=== PATIENT | female | born 1990 | race Caucasian/White ===

== ENCOUNTER 2017-02-26 07:42 | Emergency (ER) | payer SELFPAY ==
[~2017-02-26] VITALS: Ht 162.6 cm; Wt 48.0 kg
[2017-02-26 07:48] VITALS: BP 117/74; PULSE 100; RESP 16; TEMP 98.4; O2SAT 100
[2017-02-26] MEDS ORDERED: ZOFR4TAB PO (08:24)
[2017-02-26] MEDS ORDERED: ONDANSETRON ODT 4 MG TAB PO ONE (08:30)
--- NOTE | 2017-02-26 08:37 | PD ---
HPI Chief Complaint: GI Complaint Time Seen by Provider: 07:52 Travel History International Travel<30 days: No Contact w/Intl Traveler<30days: No Traveled to known affect area: No History of Present Illness HPI The patient was seen and examined in the presence of the nurse. This patient complains of nausea and vomiting and diarrhea. Duration 2 days. Severity is mild to moderate. No alleviating factors. She is not having abdominal or pelvic pain in a sustained fashion. There have been a few intermittent abdominal cramps that have resolved. PFSH Past Medical History Hx Anticoagulant Therapy: No Cardiovascular Problems: No Chemotherapy: No Cerebrovascular Accident: No Diabetes: No Diminished Hearing: No Respiratory: No ?: Unknown : 3 Para: 3 Past Surgical History Hysterectomy: No Social History Alcohol Use: No Tobacco Use: Yes (1PPD) Substance Use: No Allergies-Medications (Allergen,Severity, Reaction): Coded Allergies: No Known Allergies (Unverified , 02/26/17) Reported Meds & Prescriptions Reported Meds & Active Scripts Active Zofran (Ondansetron HCl) 4 Mg Tab 4 Mg PO Q6HR PRN Review of Systems General / Constitutional: No: Fever HENT: No: Headaches Cardiovascular: No: Chest Pain or Discomfort Respiratory: No: Cough Physical Exam Narrative GASTROINTESTINAL: Abdomen soft, non-tender, nondistended. Positive bowel sounds. No hepato-splenomegaly, or palpable masses. No guarding. SKIN: Focused skin assessment reveals no rash or ulcers. Skin is warm and dry. Palpation shows no induration or nodules. CARDIOVASCULAR: Regular rate and rhythm without murmur. Extremities showed no edema or varicosities. Data Data Last Documented VS Vital Signs Date Time Temp Pulse Resp B/P Pulse Ox O2 Delivery O2 Flow Rate FiO2 02/26/17 07:48 98.4 100 16 117/74 100 Orders Ondansetron Odt (Zofran Odt) (02/26/17 08:30) MDM Medical Decision Making Medical Screen Exam Complete: Yes Emergency Medical Condition: Yes Medical Record Reviewed: Yes Differential Diagnosis Gastroenteritis, food poisoning, colitis Narrative Course I have reviewed the patient's electronic medical record. Patient looks clinically well with benign exam and normal vital signs and is euvolemic I gave her dose of Zofran here and prescription for same Expect gradual resolution Diagnosis Primary Impression: Nausea vomiting and diarrhea Referrals: Family Practice Physician as needed Patient Instructions: General Instructions Departure Forms: Tests/Procedures Additional Instructions: The patient was advised to follow up with their physician and return if they worsen. I have recommended clear liquids for 24 hours, then gradually advance as tolerated. Med/Other Pt SpecificInfo: Prescription(s) given Scripts Ondansetron (Zofran)4 Mg Tab4 Mg PO Q6HR PRN (NAUSEA OR VOMITING) #12 TAB Ref 0 Prov:Cale Lopez MD 02/26/17 Disposition: 01 DISCHARGE HOME Condition: Stable Cale Lopez MD Feb 26, 2017 08:37
== END 2017-02-26 08:47 | disposition home or self-care (01) ==
LOC: PHED 07:42
DX: R11.2 Nausea with vomiting, unspecified (principal); R19.7 Diarrhea, unspecified; F17.200 Nicotine dependence, unspecified, uncomplicated
CPT/HCPCS: 99283

== ENCOUNTER 2018-01-10 21:58 | Emergency (ER) | payer SELFPAY ==
[~2018-01-10] VITALS: Ht 162.6 cm; Wt 54.0 kg
[~2018-01-10 21:58] MED LIST: ZOFR4TAB PO
[2018-01-10 22:17] VITALS: BP 114/54; PULSE 72; RESP 20; TEMP 98.3; O2SAT 99
--- NOTE | 2018-01-10 22:51 | PD ---
HPI Chief Complaint: Injury Time Seen by Provider: 22:38 Travel History International Travel<30 days: No Contact w/Intl Traveler<30days: No Traveled to known affect area: No History of Present Illness HPI Patient 18-year-old female presents emergency department for pain. She states that 4 days ago she was doing squats at the gym, she felt some pain in her knee doing a squat but the pain gradually got worse over the past few days, she has been able she endorses some swelling denies any other injuries. States the pain is minimal, left knee, duration and context as above. PFSH Past Medical History Medical History: Denies Significant Hx Hx Anticoagulant Therapy: No Cardiovascular Problems: No Chemotherapy: No Cerebrovascular Accident: No Diabetes: No Diminished Hearing: No Respiratory: No Immunizations Current: Yes Tetanus Vaccination: > 5 Years Influenza Vaccination: No ?: Not LMP: 6/5 : 3 Para: 3 Past Surgical History Surgical History: No Previous Surgery Hysterectomy: No Social History Alcohol Use: No Tobacco Use: Yes (1PPD) Substance Use: No Allergies-Medications (Allergen,Severity, Reaction): Coded Allergies: No Known Allergies (Verified Adverse Reaction, Unknown, 01/10/18) Reported Meds & Prescriptions Reported Meds & Active Scripts Active Review of Systems Except as stated in HPI: all other systems reviewed are Neg Physical Exam Narrative GENERAL: Well-nourished, well-developed patient. SKIN: Focused skin assessment warm/dry. HEAD: Normocephalic. EYES: No scleral icterus. No injection or drainage. NECK: Supple, trachea midline. No JVD or lymphadenopathy. CARDIOVASCULAR: Regular rate and rhythm without murmurs, gallops, or rubs. RESPIRATORY: Breath sounds equal bilaterally. No accessory muscle use. GASTROINTESTINAL: Abdomen soft, non-tender, nondistended. MUSCULOSKELETAL: No cyanosis, or edema. Patient has a small joint effusion best seen inferior to the patella. There is no tenderness of the patella, no proximal fibular tenderness, no joint laxity, no bony tenderness. No air overlying erythema and she has full range of motion of the knee. She is able to ambulate in the emergency department without limping. BACK: Nontender without obvious deformity. No CVA tenderness. Data Data Last Documented VS Vital Signs Date Time Temp Pulse Resp B/P (MAP) Pulse Ox O2 Delivery O2 Flow Rate FiO2 01/10/18 22:29 Room Air 01/10/18 22:17 98.3 72 20 114/54 (74) 99 Orders Orders Ed Discharge Order (01/10/18 22:51) MDM Medical Decision Making Medical Screen Exam Complete: Yes Emergency Medical Condition: No Differential Diagnosis Strain, sprain, fracture is excluded by [place] knee rules peer Narrative Course Patient room to the emergency department, she is excludable for imaging based on [place] knee rules. Discussed rest ice compression elevation. Follow-up with primary care physician or orthopedic surgeon. She stable for discharge Diagnosis Primary Impression: Knee strain Patient Instructions: General Instructions, Musculoskeletal Pain (ED), RICE Therapy (GEN) Additional Instructions: Recommend ibuprofen 600mg every 6 hours as needed for pain for one week. Then ibuprofen 200mg every 6 hours as needed for pain. Take with food. If no better in 6 weeks follow up with primary care physician or orthopedic surgeon for evaluation. Disposition: 01 DISCHARGE HOME Condition: Stable Juno Fitzpatrick MD Jan 10, 2018 22:51
== END 2018-01-10 23:21 | disposition home or self-care (01) ==
LOC: PHED 21:58
DX: S83.92XA Sprain of unspecified site of left knee, initial encounter (principal); F17.200 Nicotine dependence, unspecified, uncomplicated; Y93.B9 Activity, other involving muscle strengthening exercises
CPT/HCPCS: 99282